=== PATIENT | female | born 1980 | race Caucasian/White ===

== ENCOUNTER 2020-01-13 07:17 | Day surgery (SDC) | payer BC ==
[2020-01-06 16:17] LABS: BASOPHILS # (AUTO) 0.1 X10'3 (0-0.2); BASOPHILS % (AUTO) 0.9 % (0-1); EOSINOPHILS # (AUTO) 0.1 X10'3 (0-0.9); EOSINOPHILS % (AUTO) 1.4 % (0-6); LYMPHOCYTES # (AUTO) 1.8 X10'3 (1.1-4.8); MEAN CORPUSCULAR HEMOGLOBIN 30.9 PG (27.0-31.0); MEAN CORPUSCULAR VOLUME 90.8 FL (78-98); MEAN PLATELET VOLUME 8.4 FL (7.4-10.4); MONOCYTES # (AUTO) 0.4 X10'3 (0-0.9); MONOCYTES % (AUTO) 5.2 % (2-12); NEUTROPHILS # (AUTO) 4.9 X10'3 (1.8-7.7); NEUTROPHILS % (AUTO) 67.5 % (42-75); PRE OP HEMATOCRIT 40.1 % (35.0-45.0); PRE OP HEMOGLOBIN 13.6 g/dL (12.0-16.0); PRE OP PLATELET COUNT 226 X10'3 (140-440); RED BLOOD COUNT 4.41 X10'6 (4.20-5.60); RED CELL DISTRIBUTION WIDTH 13.2 % (11.5-14.5)
[2020-01-06 16:19] LABS: PREOP URINE HCG NEGATIVE (NEGATIVE)
[2020-01-06 16:21] LABS: CLARITY,URINE SLIGHTLY CLOUDY (Clear); COLOR,URINE YELLOW (Yellow); GLUCOSE, URINE NEGATIVE (Neg); KETONES,URINE NEGATIVE (Neg); LEUKOCYTE ESTERASE ,URINE NEGATIVE (Neg); NITRITES, URINE NEGATIVE (Neg); OCCULT BLOOD,URINE NEGATIVE (Neg); PROTEIN,URINE NEGATIVE (Neg); UROBILINOGEN,URINE 0.2 E.U/dL (0.2-1.0)
[2020-01-06 16:28] LABS: UA COLLECTION TYPE CLN CATCH MIDSTREAM
[2020-01-06 16:29] LABS: MUCUS STRANDS MODERATE /LPF (Neg); SQUAMOUS EPITHELIAL CELL,UR FEW /LPF (FEW)
[2020-01-06 16:30] LABS: ALBUMIN 3.9 G/DL (3.4-5.0); ALBUMIN/GLOBULIN RATIO 1.3 (1.1-1.5); ALKALINE PHOSPHATASE 63 IU/L (46-116); BLOOD UREA NITROGEN 9 MG/DL (7-18); BUN/CREATININE RATIO 11.8 (6.6-38.0); CALCIUM 8.4 MG/DL (8.5-10.1); CHLORIDE 107 MMOL/L (99-107); CREATININE 0.76 MG/DL (0.40-0.90); PRE OP ALT 22 U/L (30-65); PRE OP ANION GAP 5 (8-16); PRE OP AST 19 U/L (10-37); PRE OP BILIRUB, TOTAL 0.3 MG/DL (0.0-1.0); PRE OP GLUCOSE 96 MG/DL (70-104); PRE OP POTASSIUM 3.6 MMOL/L (3.4-5.1); PRE OP SODIUM 140 MMOL/L (135-145); TOTAL CARBON DIOXIDE 27.9 MMOL/L (24-32); eGFR 84 ML/MIN
[2020-01-06 16:30] LABS: BACTERIA,URINE FEW /HPF (Neg); RBC,URINE 0-2 /HPF (0-2); WBC,URINE 0-4 /HPF (0-4)
[~2020-01-13] VITALS: Ht 162.6 cm; Wt 73.7 kg
[2020-01-13] VITALS (10 sets, daily range): BP systolic 113–127; BP diastolic 71–87
[~2020-01-13 07:17] MED LIST: LACT1CAP65 PO; LEVO50TA PO; LIOT5TAB10 PO; VIT D PO; [UNRECOGNIZED DRUG - OTHER] PO; ceFOXitin 2GM-NS 100mL ADDvant 100 ML IV ONE; famotidine 20mg tablet PO ONE; ringers solution, lacted 1,000 ML IV SCH
--- NOTE | 2020-01-13 09:10 | NUR ---
PT'S COVID 19 RESULTS NOT UP YET SINCE 01/05 NO NEED FOR A RAPED PER JAYLON FIRE PREVENTION SPECIALIST. PER JAYLON, DR AHUMADA AND DR THU PACHECO WITH THIS.
--- NOTE | 2020-01-13 09:11 | NUR ---
0900 PT ASYMPOMATIC FOR COVID 19. NO TEMP, CHEST PRESSURE OR COUCH. NO GI, SORE THROAT, OR LOSS TASTE OR SMELL
[2020-01-13] MEDS ORDERED: midazolam 2 mg/2 ml injection ONE (10:13)
[2020-01-13] MEDS ORDERED: fentaNYL/PF 50MCG/1 ML 2ML syringe ONE (10:13)
[2020-01-13] MEDS ORDERED: ringers solution, lacted 1,000 ML IV SCH (10:16)
[2020-01-13] MEDS ORDERED: ondansetron/PF 4mg/2ml inj IV PRN (10:20)
[2020-01-13] MEDS ORDERED: meperidine/PF 25mg/ml syringe IV PRN ×3 (10:20)
[2020-01-13] MEDS ORDERED: morphine 4 MG/ML inj SYRINge IV PRN (10:20)
[2020-01-13] MEDS ORDERED: morphine 2 MG/ML inj. syringe IV PRN (10:20)
[2020-01-13] MEDS ORDERED: acetaminophen 1,000mg/100ml IV 100 ML IV PRN (10:20)
[2020-01-13] MEDS ORDERED: sevoflurane 250ml liquid IH ONE (10:20)
[2020-01-13] MEDS ORDERED: proCHLORperazine 10 MG/2 ml inj IV PRN (10:20)
[2020-01-13] MEDS ORDERED: LIDOcaine 2% (20mg/ml) 5ml vial ONE (10:25)
[2020-01-13] MEDS ORDERED: propofol inj 20 ML IV ONE (10:25)
[2020-01-13] MEDS ORDERED: dexamethasone sod phosphate 4mg/ml inj. ONE (10:35)
[2020-01-13] MEDS ORDERED: ondansetron/PF 4mg/2ml inj ONE (10:35)
--- NOTE | 2020-01-13 11:25 | NUR ---
Received from OR via BED , accompanied by Anesthesiologist DR AHUMADA and report given by Anesthesiolgist. PATIENT WAKING UP, DENIES, V/S WNL, NEUROVASCULAR CHECKS INTACT, 20G PIV LUE, SCD ON, PERIPAD WITH SCANT DRAINAGE CDI MINIMAL SCANT DRAINAGE
--- NOTE | 2020-01-13 12:55 | NUR ---
PATIENT A&OX4, DENIES PAIN, V/S WNL, NEUROVASCULAR CHECKS INTACT, 20G PIV LUE D/C WITH NO COMPLICATIONS OBSERVED, SCD OFF, FRESH JAI PAD GIVEN TO PATIENT / NO S/S OF COMPLICATIONS OR ACTIVE BLEEDING.. I HAVE REVIEWED D/C INSTRUCTIONS WITH PATIENT AND FAMILY AND THEY HAVE VERBALIZED UNDERSTANDING. PATIENT D/C HOME WITH FAMILY TO TRANSPORT AND ALL BELONGINGS..
== END 2020-01-13 12:55 | disposition home or self-care (01) ==
LOC: PAS 07:17
PROVIDERS: ATTEND Obstetrics & Gynecology Obstetrics
DX: N92.1 Excessive and frequent menstruation with irregular cycle (principal); N84.0 Polyp of corpus uteri; E66.9 Obesity, unspecified; Z68.27 Body mass index [BMI] 27.0-27.9, adult; Z98.890 Other specified postprocedural states; Z11.59 Encounter for screening for other viral diseases; Z79.899 Other long term (current) drug therapy; Z83.3 Family history of diabetes mellitus; Z80.9 Family history of malignant neoplasm, unspecified
CPT/HCPCS: 36415; 58558; 71046; 80053; 81001; 81025; 85025; 86885; 86900; 86901; 93005; J0694; J1100; J2001; J2250; J2405; J2704; J3010; J7030; U0003; A4355; A4618; A6258; J7120